=== PATIENT | female | born 1965 | race Caucasian/White ===

== ENCOUNTER 2017-07-04 18:24 | Emergency (ER) | payer OTHER ==
[2017-07-04 18:45] VITALS: BP 159/74; PULSE 66; BMI 27.4
--- NOTE | 2017-07-04 19:38 | PDOC ---
History of Present Illness - General Chief Complaint: Back Pain Stated Complaint: BACK PAIN Time Seen by Provider: 07/04/17 19:28 History Source: Patient Exam Limitations: No Limitations - History of Present Illness Initial Comments: CHIEF COMPLAINT: 52 y/o afebrile female c/o left butt pain radiating down her left leg x 4 days. HISTORY OF PRESENT ILLNESS: The patient states she woke up with the pain 4 days ago. She states she does not recall doing any heavy lifting the day before. She denies fall/trauma to back. She states she has been taking Advil with some relief. The pain down the back of her left leg feels tingly/burning. She denies all other symptoms. Vital signs on arrival are within normal limits. REVIEW OF SYSTEMS: GENERAL/CONSTITUTIONAL: No fever/chills. No weakness. No weight change. HEAD, EYES, EARS, NOSE AND THROAT: No change in vision. No ear pain or discharge. No sore throat. CARDIOVASCULAR: No chest pain or shortness of breath. RESPIRATORY: No cough, wheezing, or hemoptysis. GASTROINTESTINAL: No abd pain, nausea, vomiting, diarrhea. GENITOURINARY: No dysuria, frequency, or change in urination. MUSCULOSKELETAL: +left butt pain with left leg pain. No neck or back pain. SKIN: No rash or easy bruising. NEUROLOGIC: No headache, vertigo, loss of consciousness, or loss of sensation. PHYSICAL EXAM: GENERAL: The patient is awake, alert, and fully oriented, in no acute distress. She is ambulatory and appears uncomfortable. HEAD: Normal with no signs of trauma. ENT: Pupils equal, round and reactive to light, extraocular movements intact, sclera anicteric, conjunctiva clear. Neck supple. LUNGS: Clear to auscultation bilaterally. Normal excursion. No respiratory distress or use of accessory muscles. CV: RRR, S1/S2, no MRG. Cap refill < 2 sec. ABDOMEN: Soft, non-distended, non-tender even to deep palpation, no hepatomegaly or splenomegaly, no masses. BACK: Pain reproduced with palpation of left gluteal and piriformis muscles. No midline lumbar spine TTP. No lumbar paravertebral TTP b/l. EXTREMITIES: Normal range of motion, no edema. NEUROLOGICAL: Normal speech, normal gait. CN II-XII grossly intact. No saddle anesthesia. Equal straight leg raise b/l. PSYCH: Normal mood, normal affect. SKIN: Warm, dry, normal turgor, no rashes or lesions noted. Past History - Past Medical History Allergies/Adverse Reactions: Allergies Allergy/AdvReac Type Severity Reaction Status Date / Time No Known Allergies Allergy Verified 07/04/17 18:35 Home Medications: Ambulatory Orders Albuterol Sulfate Inhaler - [Ventolin Hfa Inhaler -] 2 inh PO Q4H 07/04/17 Cyclobenzaprine HCl [Flexeril -] 10 mg PO TID #18 tablet 07/04/17 Hypercholesterolemia: Yes (no meds) - Immunization History Immunization Up to Date: Yes - Psycho/Social/Smoking Cessation Hx Anxiety: No Suicidal Ideation: No Smoking Status: No Smoking History: Never smoked Have you smoked in the past 12 months: No Number of Cigarettes Smoked Daily: 0 Hx Alcohol Use: No Drug/Substance Use Hx: No Substance Use Type: None Trauma Specific PMHX - Complaint Specific PMHX Back Injury: Yes Neck Injury: Yes *Physical Exam - Vital Signs Last Vital Signs Temp Pulse Resp BP Pulse Ox 66 18 159/74 99 07/04/17 18:36 07/04/17 18:36 07/04/17 18:36 07/04/17 18:36 Medical Decision Making - Medical Decision Making A/P: 52 y/o female with piriformis syndrome. I was able to show the patient some stretching she can do at home and also suggested massage of affected area. Will send rx for flexeril and suggested she take with Advil. Instructed her to f/u with her doctor in 1 week if no improvement and return to the ER with any worsening or concerning symptoms. The patient verbalizes understanding of all instructions, has no further questions and is awaiting discharge. *DC/Admit/Observation/Transfer Diagnosis at time of Disposition: Piriformis syndrome of left side - Discharge Dispostion Disposition: HOME Condition at time of disposition: Good - Prescriptions Prescriptions: Cyclobenzaprine HCl [Flexeril -] 10 mg PO TID #18 tablet - Referrals Referrals: STAFF,NOT ON [Primary Care Provider] - - Patient Instructions Printed Discharge Instructions: DI for Sciatica Additional Instructions: Discharge Instructions: -A prescription for a muscle relaxer has been sent to your pharmacy; please take with Advil -The muscle relaxer may make you drowsy. -Perform stretches shown to you in the ER every hour -Have someone massage your left buttock 3 times per day -Follow up with your doctor within 1 week -Return to the ER with any worsening or concerning symptoms Instrucciones de nanda: -La receta para un relajante muscular se bass enviado a ruelas farmacia; Por favor tome con Advil -El relajante muscular puede causar somnolencia. -Performos estiramientos que se le muestran en el ER cada hora -Micheal que alguien masaje ruelas nalga izquier[place] 3 veces al da - Siga con ruelas mdico dentro de varun semana -Vuelva a la [facility] de emergencias con cualquier empeoramiento o sntomas relacionados Print Language: ARMENIAN
[2017-07-04] MEDS ORDERED: CYCLOBENZAPRINE HCL 10 MG TABLET (FP) PO ONE (19:39)
[2017-07-04] MEDS ORDERED: CYCLOBENZAPRINE HCL 10 MG TABLET (FP) ONE (19:49)
== END 2017-07-04 19:55 | disposition home or self-care (01) ==
LOC: JERFT 18:24
DX: G57.01 Lesion of sciatic nerve, right lower limb (principal)
CPT/HCPCS: 99281-25